=== PATIENT | female | born 1975 | race Caucasian/White ===

== ENCOUNTER 2018-03-30 03:46 | Emergency (ER) | payer OTHER ==
[~2018-03-30] VITALS: Ht 172.7 cm; Wt 81.7 kg
[2018-03-30] MEDS ORDERED: NORCO 5-325 TA1 EACH PO (04:45)
[2018-03-30] MEDS ORDERED: TORADOL 10 MG T10 MG PO (04:45)
[2018-03-30 05:07] VITALS: BP 123/82
== END 2018-03-30 05:09 | disposition home or self-care (01) ==
LOC: M.ERS 03:46
DX: H92.02 Otalgia, left ear (principal); Z88.0 Allergy status to penicillin; Z88.6 Allergy status to analgesic agent; Z90.710 Acquired absence of both cervix and uterus

== ENCOUNTER 2019-03-01 12:05 | Emergency (ER) | payer OTHER ==
[~2019-03-01] VITALS: Ht 175.3 cm; Wt 83.9 kg
[~2019-03-01 12:05] MED LIST: NORCO 5-325 TA1 EACH PO; TORADOL 10 MG T10 MG PO
[2019-03-01] MEDS ORDERED: PHENERGAN 25 MG25 MG PO (14:46)
[2019-03-01] MEDS ORDERED: NORFLEX100 MG PO (14:46)
[2019-03-01 14:53] VITALS: BP 107/67
== END 2019-03-01 14:55 | disposition home or self-care (01) ==
LOC: M.ERS 12:05
DX: G43.909 Migraine, unspecified, not intractable, without status migrainosus (principal); Z98.51 Tubal ligation status; Z90.710 Acquired absence of both cervix and uterus

== ENCOUNTER 2019-07-24 21:19 | Emergency (ER) | payer OTHER ==
[~2019-07-24] VITALS: Ht 177.8 cm; Wt 81.7 kg
[~2019-07-24 21:19] MED LIST changes: +NORFLEX100 MG PO; +PHENERGAN 25 MG25 MG PO
[2019-07-24] MEDS ORDERED: TRAMADOL 50 MG50 MG PO (22:30)
[2019-07-24 22:43] VITALS: BP 118/75
== END 2019-07-25 01:10 | disposition home or self-care (01) ==
LOC: M.ERS 21:19
DX: S50.11XA Contusion of right forearm, initial encounter (principal); Z88.0 Allergy status to penicillin; Z98.51 Tubal ligation status; Z90.710 Acquired absence of both cervix and uterus; Y08.89XA Assault by other specified means, initial encounter; Y93.89 Activity, other specified; Y92.89 Other specified places as the place of occurrence of the external cause; Y99.8 Other external cause status

== ENCOUNTER 2020-11-24 06:19 | Emergency (ER) | payer OTHER ==
[~2020-11-24] VITALS: Ht 175.3 cm; Wt 81.7 kg
[~2020-11-24 06:19] MED LIST changes: +TRAMADOL 50 MG50 MG PO
[2020-11-24 07:08] VITALS: BP 132/86
== END 2020-11-24 07:09 | disposition home or self-care (01) ==
LOC: M.ERS 06:19
DX: B34.9 Viral infection, unspecified (principal); Z20.822 Contact with and (suspected) exposure to COVID-19; Z90.710 Acquired absence of both cervix and uterus; Z88.0 Allergy status to penicillin